=== PATIENT | male | born 1955 | race Caucasian/White ===

== ENCOUNTER 2021-08-23 11:11 | Inpatient (IN) | payer BC ==
[~2021-08-23] VITALS: Ht 193 cm; Wt 95.5 kg
[2021-08-23] MEDS ORDERED: piperacillin/tazo 3.375gm/50ml 50 ML IV ONE (11:30)
[2021-08-23] MEDS ORDERED: vancomycin/NS 1 GM ADD-VANTAGE 250 ML IV ONE (11:30)
[2021-08-23 11:55] LABS: BASOPHILS # (AUTO) 0.1 X10'3 (0-0.2); BASOPHILS % (AUTO) 0.7 % (0-1); EOSINOPHILS # (AUTO) 0.2 X10'3 (0-0.9); EOSINOPHILS % (AUTO) 2.1 % (0-6); HEMATOCRIT 41.8 % (42.0-52.0); HEMOGLOBIN 14.5 g/dl (14.0-17.9); LYMPHOCYTES # (AUTO) 2.3 X10'3 (1.1-4.8); LYMPHOCYTES % (AUTO) 24.5 % (21-51); MEAN CORPUSCULAR HEMOGLOBIN 32.2 PG (27.0-31.0); MEAN CORPUSCULAR HGB CONC 34.8 g/dL (33.0-36.5); MEAN CORPUSCULAR VOLUME 92.4 FL (78-98); MEAN PLATELET VOLUME 7.9 FL (7.4-10.4); MONOCYTES # (AUTO) 0.6 X10'3 (0-0.9); MONOCYTES % (AUTO) 6.5 % (2-12); NEUTROPHILS # (AUTO) 6.1 X10'3 (1.8-7.7); NEUTROPHILS % (AUTO) 66.2 % (42-75); PLATELET COUNT 339 X10'3 (140-440); RED BLOOD COUNT 4.52 X10'6 (4.70-6.10); RED CELL DISTRIBUTION WIDTH 15.4 % (11.5-14.5); WHITE BLOOD COUNT 9.3 X10'3 (4.5-11.0)
[2021-08-23 12:55] LABS: ALANINE AMINOTRANSFERASE 24 U/L (12-78); ALBUMIN 3.3 G/DL (3.4-5.0); ALBUMIN/GLOBULIN RATIO 0.7 (1.1-1.5); ALKALINE PHOSPHATASE 100 IU/L (46-116); ANION GAP 12 (8-16); ASPARTATE AMINO TRANSFERASE 9 U/L (10-37); BILIRUBIN,TOTAL 0.2 MG/DL (0.1-1.0); BLOOD UREA NITROGEN 13 MG/DL (7-18); CALCIUM 9.2 MG/DL (8.5-10.1); CHLORIDE 102 MMOL/L (99-107); GLUCOSE 419 MG/DL (70-104); POTASSIUM 4.4 MMOL/L (3.5-5.1); SODIUM 137 MMOL/L (135-145); TOTAL CARBON DIOXIDE 23.2 MMOL/L (24-32); TOTAL PROTEIN 7.8 G/DL (6.4-8.2); eGFR 75 ML/MIN
[2021-08-23 13:39] LABS: PLATELET ESTIMATE NORMAL; TOTAL CELLS COUNTED 100
[2021-08-23] MEDS ORDERED: ondansetron/PF 4mg/2ml inj IV ONE (14:10)
[2021-08-23] MEDS ORDERED: normal saline 1000ml 1,000 ML IV ONE (14:10)
[2021-08-23] MEDS ORDERED: morphine 4 MG/ML inj SYRINge IV ONE (14:10)
[2021-08-23] MEDS ORDERED: LIDOcaine/epinephrine/tetracaine TOPICAL sol 3 ML syringe TOP ONE (14:15)
[2021-08-23] MEDS ORDERED: mupirocin 2% ointment 22GM TP ONE (14:15)
[2021-08-23] MEDS ORDERED: TETanus/Pertussis (Acell)/Diphther VAC/PF (Tdap-Adult) 0.5ml syringe IMVAC ONE (14:15)
[2021-08-23] MEDS ORDERED: nicotine 21mg patch - 24 hr TD ONE (14:55)
[2021-08-23] MEDS ORDERED: LORazepam 2 mg/ml vial IV PRN (15:00)
[2021-08-23] MEDS ORDERED: magnesium 4gm in 100ml NS 100 ML IV PRN (15:00)
[2021-08-23] MEDS ORDERED: magnesium hydroxide 30ml (MOM) UD suspension PO PRN (15:00)
[2021-08-23] MEDS ORDERED: ondansetron/PF 4mg/2ml inj IV PRN (15:00)
[2021-08-23] MEDS ORDERED: potassium CL 10mEq/100ml bag 100 ML IV PRN (15:00)
[2021-08-23] MEDS ORDERED: HYDROcodone/acetaminophen 5mg/325mg tablet PO PRN (15:00)
[2021-08-23] MEDS ORDERED: mag hydrox/Alum hydrox/simeth 30ml oral suspension PO PRN (15:00)
[2021-08-23] MEDS ORDERED: morphine 2 MG/ML inj. syringe IV PRN ×2 (15:00)
[2021-08-23] MEDS ORDERED: LORazepam 1 MG tablet PO PRN (15:00)
[2021-08-23] MEDS ORDERED: acetaminophen 325mg tablet PO PRN ×2 (15:00)
[2021-08-23] MEDS ORDERED: magnesium Cl slow-release 64mg tablet PO PRN (15:00)
[2021-08-23] MEDS ORDERED: magnesium 2GM in 50ml NS 50 ML IV PRN (15:00)
[2021-08-23] MEDS ORDERED: potassium Cl 20 mEq SR tablet PO PRN ×2 (15:00)
[2021-08-23] MEDS ORDERED: HYDROcodone/acetaminophen 10/325mg tab PO PRN (15:00)
[2021-08-23] MEDS ORDERED: MESSAGE TO PHARMACY PO ONE (15:05)
[2021-08-23] MEDS ORDERED: dextrose 50%-water 50ml dispensing syringe IV PRN ×2 (15:05)
[2021-08-23] MEDS ORDERED: glucagon, human recombinant 1mg kit SUBCUT PRN (15:05)
[2021-08-23] MEDS ORDERED: dextrose ORAL solution 15 GM/59 ML bottle PO PRN ×2 (15:05)
[2021-08-23] MEDS ORDERED: NO HOME MEDS (15:07)
[2021-08-23] MEDS ORDERED: vancomycin/NS 1 GM ADD-VANTAGE 250 ML X 1 DOSE IV ONE (15:15)
[2021-08-23 15:34] LABS: HEMOGLOBIN A1C 9.5 % (4.5-6.2)
[2021-08-23] MEDS ORDERED: piperacillin/tazo 3.375gm/50ml 50 ML IV SCH (16:00)
[2021-08-23] MEDS: normal saline 1000ml 1,000 ML IV SCH (16:11)
[2021-08-23] MEDS: lisinopril 10 MG tablet PO SCH (19:00)
[2021-08-23] MEDS: piperacillin/tazo 3.375gm/50ml 50 ML IV SCH (19:00)
[2021-08-23] MEDS: heparin, porcine 5000 units/ml vial SQ SCH (19:08)
[2021-08-23] MEDS: insulin Lispro (HumaLOG) vial - multi-dose SQ SCH (19:29)
[2021-08-23] MEDS: K and/or MAG REPLACEMENT MC SCH (20:00)
[2021-08-23] MEDS: insulin glargine (Lantus) pen - multi-dose SQ SCH (20:24)
[2021-08-23 20:48] LABS: CLARITY,URINE CLEAR (Clear); COLOR,URINE YELLOW (Yellow); GLUCOSE, URINE >=1000 mg/dl (Neg); KETONES,URINE NEGATIVE (Neg); LEUKOCYTE ESTERASE ,URINE NEGATIVE (Neg); NITRITES, URINE NEGATIVE (Neg); OCCULT BLOOD,URINE NEGATIVE (Neg); PROTEIN,URINE NEGATIVE (Neg); UROBILINOGEN,URINE 0.2 E.U/dL (0.2-1.0)
[2021-08-23 20:58] LABS: UA COLLECTION TYPE CLN CATCH MIDSTREAM
[2021-08-23 21:01] LABS: WBC,URINE 0-4 /HPF (0-4)
[2021-08-23 21:02] LABS: BACTERIA,URINE NONE SEEN /HPF (Neg); MUCUS STRANDS FEW /LPF (Neg); RBC,URINE 0-2 /HPF (0-2); SQUAMOUS EPITHELIAL CELL,UR FEW /LPF (FEW); TRANSITIONAL EPI CELLS,URINE FEW /HPF
[2021-08-23 21:03] LABS: URINE AMPHETAMINE SCREEN NEGATIVE (Neg); URINE BARBITUATE SCREEN NEGATIVE (Neg); URINE BENZODIAZEPINES SCREEN NEGATIVE (Neg); URINE CANNABINOID SCREEN NEGATIVE (Neg); URINE COCAINE SCREEN NEGATIVE (Neg); URINE METHADONE SCREEN NEGATIVE (Neg); URINE OPIATE SCREEN POSITIVE (Neg); URINE PHENCYCLIDINE SCREEN NEGATIVE (Neg)
--- NOTE | 2021-08-23 21:30 | NUR ---
Received report from Sammie RIZO in the ER. Pt arrived on the unit via gurney and was able to ambulate with his cane and assistance to his bed. Pt belongings were placed in the closet except for his phone which the pt kept on his person. Pt was on room air, saline locked with no signs of distress. Will continue to monitor.
[2021-08-23 21:45] VITALS: BP 176/78
--- NOTE | 2021-08-23 22:15 | NUR ---
Advised pt that dressing would need to be removed to take pictures. Pt did not want dressing removed at this time as the ER had just placed it less than an hour prior and the dressing was extremely painful. Advised pt that it would need to be removed on dayshift and premedication should be done. Will notify dayshift of pictures needing to be completed.
[2021-08-23 23:51] VITALS: BP 133/60
[2021-08-24] MEDS: normal saline 1000ml 1,000 ML IV SCH ×3 (01:36→21:00)
[2021-08-24] MEDS: vancomycin/NS 1 GM ADD-VANTAGE 250 ML IV SCH ×2 (01:36→16:26)
[2021-08-24] MEDS: piperacillin/tazo 3.375gm/50ml 50 ML IV SCH ×3 (04:05→19:58)
[2021-08-24 06:14] LABS: BASOPHILS # (AUTO) 0.1 X10'3 (0-0.2); BASOPHILS % (AUTO) 0.8 % (0-1); EOSINOPHILS # (AUTO) 0.2 X10'3 (0-0.9); HEMATOCRIT 38.7 % (42.0-52.0); HEMOGLOBIN 13.2 g/dl (14.0-17.9); LYMPHOCYTES # (AUTO) 2.4 X10'3 (1.1-4.8); LYMPHOCYTES % (AUTO) 22.2 % (21-51); MEAN CORPUSCULAR HEMOGLOBIN 31.7 PG (27.0-31.0); MEAN CORPUSCULAR HGB CONC 34.2 g/dL (33.0-36.5); MEAN CORPUSCULAR VOLUME 92.8 FL (78-98); MEAN PLATELET VOLUME 8.1 FL (7.4-10.4); MONOCYTES # (AUTO) 0.6 X10'3 (0-0.9); MONOCYTES % (AUTO) 5.8 % (2-12); NEUTROPHILS # (AUTO) 7.3 X10'3 (1.8-7.7); NEUTROPHILS % (AUTO) 69.2 % (42-75); PLATELET COUNT 301 X10'3 (140-440); RED BLOOD COUNT 4.17 X10'6 (4.70-6.10); RED CELL DISTRIBUTION WIDTH 15.5 % (11.5-14.5); WHITE BLOOD COUNT 10.6 X10'3 (4.5-11.0)
--- NOTE | 2021-08-24 06:25 | NUR ---
Problems reprioritized. Patient report given, questions answered & plan of care reviewed with Caridad RIZO.
[2021-08-24 06:32] LABS: ALANINE AMINOTRANSFERASE 17 U/L (12-78); ALBUMIN 2.7 G/DL (3.4-5.0); ALBUMIN/GLOBULIN RATIO 0.7 (1.1-1.5); ALKALINE PHOSPHATASE 76 IU/L (46-116); ANION GAP 7 (8-16); ASPARTATE AMINO TRANSFERASE 13 U/L (10-37); BILIRUBIN,TOTAL 0.4 MG/DL (0.1-1.0); BLOOD UREA NITROGEN 12 MG/DL (7-18); CALCIUM 8.4 MG/DL (8.5-10.1); CHLORIDE 104 MMOL/L (99-107); CREATININE 0.92 MG/DL (0.60-1.10); GLUCOSE 140 MG/DL (70-104); POTASSIUM 4.2 MMOL/L (3.5-5.1); SODIUM 136 MMOL/L (135-145); TOTAL CARBON DIOXIDE 25.4 MMOL/L (24-32); TOTAL PROTEIN 6.4 G/DL (6.4-8.2); eGFR 82 ML/MIN
[2021-08-24 07:00] VITALS: BP 146/79
[2021-08-24] MEDS: nicotine 14mg patch - 24hr TD SCH (07:49)
[2021-08-24] MEDS: heparin, porcine 5000 units/ml vial SQ SCH ×2 (07:49→19:57)
[2021-08-24] MEDS: lisinopril 10 MG tablet PO SCH (07:49)
[2021-08-24] MEDS: atenolol 50mg tablet PO SCH (07:49)
[2021-08-24 07:52] LABS: PLATELET ESTIMATE NORMAL; TOTAL CELLS COUNTED 100
[2021-08-24 07:59] LABS: LARGE PLATELETS FEW
[2021-08-24] MEDS: K and/or MAG REPLACEMENT MC SCH ×2 (08:00→20:00)
[2021-08-24] MEDS ORDERED: pneumococcal 23-VAL P-sac vacc 25 mcg/0.5ml vial IMVAC ONE (10:00)
[2021-08-24] MEDS ORDERED: FLU VACC QS2021-22(6MOS UP)/PF 60 MCG/0.5 ML SYRINGE IM ONE (10:00)
[2021-08-24 11:30] VITALS: BP 139/80
--- NOTE | 2021-08-24 13:04 | NUR ---
Met with patient in regards to alcohol use and to see if patient wanted any resources for treatment options. Patient has tried going to AA and feels like he needs something more then that. Patient would like to get established with a counselor first that takes his insurance. I let patients psychosocial rehabilitation counselor know that patient would like a list of providers. I will check back in with patient before he is discharged.
--- NOTE | 2021-08-24 13:09 | NUR ---
WOUND INFECTION EDUCATION PROVIDED BY WOUND CARE 1. Patient instructed to call their primary doctor, or go the ED immediately if any of the following symptoms occur: * Increased pain in wound * Increase in drainage from the wound * Redness in the skin surrounding the wound * Warmth in the skin surrounding the wound * Bleeding from the wound * Temperature of 101 or greater 2. If any of these occur while in the hospital tell a nurse immediately. Addendum: 08/24/21 at 1309 by Bhupendra Narayanan RN Amended: Links added.
[2021-08-24] MEDS: insulin Lispro (HumaLOG) vial - multi-dose SQ SCH ×2 (13:30→19:14)
--- NOTE | 2021-08-24 14:52 | NUR ---
DM consult: Pt with A1c 9.5% with T2DM in [facility], however per physician notes pt denies h/o DM. Likely new diagnosis this admit. Unable to provide DM education until physician has informed pt of DM dx, d/w RN who is unsure if physician has informed pt of DM at this time. DM education deferred pending confirmation that pt has received official dx by physician. Pt admit for left heel abscess/cellulitis which occurred after stepping on a toothpick. Per [facility] note, wound documented as an abscess with sloughing hematoma. Pt currently on a CHO controlled diet documented with 100% PO intake throughout [facility]. D/w dietary to send double protein TIDWM. LBM 08/23. Will continue to follow. Recommendations: 1) Continue CHO controlled diet 2) Double eggs WB, double meat BIDLD 3) Bowel care PRN 4) Weekly scaled weights 5) DM education once confirmed pt has received DM dx by physician, A1c 9.5% Addendum: 08/24/21 at [address] Amended: Links added.
--- NOTE | 2021-08-24 15:17 | NUR ---
picked up for MRI
[2021-08-24 18:00] VITALS: BP 151/77
[2021-08-24] MEDS ORDERED: GADOTERATE MEGLUMINE 7.5 MMOL/15 ML VIAL IV ONE (18:00)
--- NOTE | 2021-08-24 18:16 | NUR ---
Problems reprioritized. Patient report given, questions answered & plan of care reviewed with SALLIE Mosqueda.
[2021-08-24] MEDS: lactobacillus rhamnosus 10,000 MMU CELLS/CAPSULE PO SCH (19:56)
[2021-08-24] MEDS: insulin glargine (Lantus) pen - multi-dose SQ SCH (21:23)
[2021-08-25] VITALS: BP 146/72
--- NOTE | 2021-08-25 00:45 | NUR ---
Patient was returned to the unit by security after he left the unit to go outside to smoke . Patient educated on our non- smoking policy and the risk to his health from smoking .
[2021-08-25] MEDS ORDERED: VANCOMYCIN LEVEL IV ONE (01:30)
[2021-08-25 01:37] LABS: BASOPHILS % (AUTO) 0.2 % (0-1); EOSINOPHILS # (AUTO) 0.2 X10'3 (0-0.9); EOSINOPHILS % (AUTO) 2.3 % (0-6); HEMATOCRIT 37.5 % (42.0-52.0); HEMOGLOBIN 13.1 g/dl (14.0-17.9); LYMPHOCYTES # (AUTO) 2.8 X10'3 (1.1-4.8); LYMPHOCYTES % (AUTO) 26.8 % (21-51); MEAN CORPUSCULAR HGB CONC 34.9 g/dL (33.0-36.5); MEAN CORPUSCULAR VOLUME 91.8 FL (78-98); MEAN PLATELET VOLUME 7.9 FL (7.4-10.4); MONOCYTES # (AUTO) 0.6 X10'3 (0-0.9); MONOCYTES % (AUTO) 5.6 % (2-12); NEUTROPHILS # (AUTO) 6.8 X10'3 (1.8-7.7); NEUTROPHILS % (AUTO) 65.1 % (42-75); PLATELET COUNT 260 X10'3 (140-440); RED BLOOD COUNT 4.08 X10'6 (4.70-6.10); RED CELL DISTRIBUTION WIDTH 15.2 % (11.5-14.5); WHITE BLOOD COUNT 10.4 X10'3 (4.5-11.0)
[2021-08-25 01:53] LABS: ALANINE AMINOTRANSFERASE 15 U/L (12-78); ALBUMIN 2.6 G/DL (3.4-5.0); ALBUMIN/GLOBULIN RATIO 0.8 (1.1-1.5); ALKALINE PHOSPHATASE 73 IU/L (46-116); ANION GAP 10 (8-16); ASPARTATE AMINO TRANSFERASE 10 U/L (10-37); BILIRUBIN,TOTAL 0.3 MG/DL (0.1-1.0); BLOOD UREA NITROGEN 16 MG/DL (7-18); BUN/CREATININE RATIO 15.2 (5.4-32.0); CALCIUM 8.2 MG/DL (8.5-10.1); CHLORIDE 106 MMOL/L (99-107); CREATININE 1.05 MG/DL (0.60-1.10); GLUCOSE 185 MG/DL (70-104); POTASSIUM 4.2 MMOL/L (3.5-5.1); SODIUM 141 MMOL/L (135-145); TOTAL CARBON DIOXIDE 25.2 MMOL/L (24-32); eGFR 70 ML/MIN
[2021-08-25] MEDS: vancomycin/NS 1 GM ADD-VANTAGE 250 ML IV SCH (02:03)
[2021-08-25 03:07] LABS: VANCOMYCIN,TROUGH 14.7 UG/ML (6.0-14.0)
[2021-08-25] MEDS: piperacillin/tazo 3.375gm/50ml 50 ML IV SCH ×2 (03:14→10:50)
--- NOTE | 2021-08-25 06:11 | NUR ---
Patient report given, questions answered and plan of care reviewed with Caridad RIZO.
[2021-08-25 07:00] VITALS: BP 172/85
[2021-08-25] MEDS: normal saline 1000ml 1,000 ML IV SCH ×2 (07:00→10:50)
[2021-08-25] MEDS: atenolol 50mg tablet PO SCH (07:10)
[2021-08-25] MEDS: lactobacillus rhamnosus 10,000 MMU CELLS/CAPSULE PO SCH (07:10)
[2021-08-25] MEDS: lisinopril 10 MG tablet PO SCH (07:10)
[2021-08-25] MEDS: nicotine 14mg patch - 24hr TD SCH (07:11)
[2021-08-25] MEDS: heparin, porcine 5000 units/ml vial SQ SCH (07:11)
[2021-08-25] MEDS: K and/or MAG REPLACEMENT MC SCH (07:15)
[2021-08-25] MEDS: insulin Lispro (HumaLOG) vial - multi-dose SQ SCH (08:55)
--- NOTE | 2021-08-25 09:38 | NUR ---
Page sent to Physically Impaired Teacher.... [address] Alexander Sheikh: did talk to patient regarding new DM findings. he is okay for education. thank you!
[2021-08-25] MEDS ORDERED: METF-1203 PO (11:26)
[2021-08-25] MEDS ORDERED: ATEN50TA41 PO (11:26)
[2021-08-25] MEDS ORDERED: LISI10TA27 PO (11:26)
[2021-08-25] MEDS ORDERED: DOXY-243 PO (11:26)
[2021-08-25] MEDS ORDERED: NICO-631 TD (11:26)
--- NOTE | 2021-08-25 12:00 | NUR ---
daily dressing change completed with patients assistance.
--- NOTE | 2021-08-25 12:09 | NUR ---
Page sent to ... [address] Alexander Sheikh: requesting to speak with you prior to DC. thanks!
--- NOTE | 2021-08-25 12:38 | NUR ---
not done. patient discharged Addendum: 08/25/21 at 1238 by Caridad Carballo RN Amended: Links added.
[2021-08-25 12:41] VITALS: BP 154/80
--- NOTE | 2021-08-25 14:12 | NUR ---
Patient stable and appropriate for discharge home. IV removed, all belongings taken from room. New prescriptions called into [facility] in [place]. All wound care completed with patient and he returned the demonstration, all questions answered. Extra wound care supplies were given to the patient so he could complete the daily dressing at home per Dr. Benavidez's request. Diabetes survival skills as well as diet information and information on metformin was given to the patient. All discharge instructions and education given and reviewed with patient, all questions answered. Verbal understanding of all.
== END 2021-08-25 14:00 | disposition home or self-care (01) | DRG 603 ==
LOC: ER 11:12 → ED HOLD 15:03 → SUR 3N 21:30
PROVIDERS: ADMIT Internal Medicine; ATTEND Internal Medicine
DX: L03.116 Cellulitis of left lower limb (principal); L02.612 Cutaneous abscess of left foot; F17.210 Nicotine dependence, cigarettes, uncomplicated; E11.65 Type 2 diabetes mellitus with hyperglycemia; I10 Essential (primary) hypertension; Z66 Do not resuscitate
CPT/HCPCS: 36415; 71045; 73720; 80053; 80202; 80305; 81001; 82948; 83036; 83605; 84145; 85007; 85025; 87040; 87081; 90471; 90715; 90732; 93005; 93926; 96365; 96368; 96375; 97110; 97161; 97530; 99285; A9575; G0378; J1644; J1815; J2270; J2405; J2543; J3370; J7030

== ENCOUNTER 2022-08-02 17:18 | Emergency (ER) | payer BC ==
[~2022-08-02] VITALS: Ht 193 cm; Wt 102.3 kg
[~2022-08-02 17:18] MED LIST: FOLI1TAB27 PO; LISI2.5T14 PO; MULT-620 PO; NICO-687 TD; SERT-432 PO; thiamine tablet PO
[2022-08-02 17:52] VITALS: BP 131/82
== END 2022-08-02 21:55 | disposition left against medical advice (07) ==
LOC: ER 17:19
DX: M79.601 Pain in right arm (principal); Z53.21 Procedure and treatment not carried out due to patient leaving prior to being seen by health care provider
CPT/HCPCS: 73060

== ENCOUNTER 2022-08-07 15:36 | Emergency (ER) | payer BC ==
[~2022-08-07] VITALS: Ht 193 cm; Wt 98.0 kg
[2022-08-07] MEDS ORDERED: acetaminophen 325mg tablet PO ONE (17:50)
[2022-08-07 20:15] VITALS: BP 152/76
== END 2022-08-07 20:17 | disposition home or self-care (01) ==
LOC: ER 15:37
DX: S42.291A Other displaced fracture of upper end of right humerus, initial encounter for closed fracture (principal); M25.511 Pain in right shoulder; E11.9 Type 2 diabetes mellitus without complications; W19.XXXA Unspecified fall, initial encounter; Y93.89 Activity, other specified; Y92.89 Other specified places as the place of occurrence of the external cause; Y99.8 Other external cause status
CPT/HCPCS: 73030; 73200; 99284; A4565

== ENCOUNTER 2022-08-16 19:55 | Emergency (ER) | payer BC | END 2022-08-16 21:59 | disposition left against medical advice (07) | LOC: ER 19:56 | DX: M79.603 Pain in arm, unspecified (principal); Z53.21 Procedure and treatment not carried out due to patient leaving prior to being seen by health care provider ==

== ENCOUNTER 2022-08-17 03:57 | Emergency (ER) | payer BC ==
[~2022-08-17] VITALS: Ht 193 cm; Wt 98.0 kg
[2022-08-17 04:17] VITALS: BP 159/82
== END 2022-08-17 06:35 | disposition home or self-care (01) ==
LOC: ER 03:57
DX: S42.201A Unspecified fracture of upper end of right humerus, initial encounter for closed fracture (principal); E11.9 Type 2 diabetes mellitus without complications; W19.XXXA Unspecified fall, initial encounter; Y93.89 Activity, other specified; Y92.89 Other specified places as the place of occurrence of the external cause; Y99.8 Other external cause status
CPT/HCPCS: 29105; 73060; 99283

== ENCOUNTER 2023-11-30 12:55 | Inpatient (IN) | payer BC, MEDICARE ==
[~2023-11-30] VITALS: Ht 193 cm; Wt 75.0 kg
[~2023-11-30 12:55] MED LIST changes: +BISA-78 PO; +FERR324T4 PO; +LANTUS SQ; -LISI2.5T14 PO; +LISI5TAB22 PO
[2023-11-30 14:09] LABS: BASOPHILS % (AUTO) 0.4 % (0-1); EOSINOPHILS % (AUTO) 0 % (0-6); HEMATOCRIT 36.1 % (42.0-52.0); HEMOGLOBIN 12.4 g/dl (14.0-17.9); LYMPHOCYTES # (AUTO) 1.2 X10'3 (1.1-4.8); MEAN CORPUSCULAR HEMOGLOBIN 34.3 PG (27.0-31.0); MEAN CORPUSCULAR HGB CONC 34.2 g/dL (33.0-36.5); MEAN CORPUSCULAR VOLUME 100.1 FL (78-98); MEAN PLATELET VOLUME 7.4 FL (7.4-10.4); MONOCYTES # (AUTO) 1.3 X10'3 (0-0.9); MONOCYTES % (AUTO) 12.8 % (2-12); NEUTROPHILS # (AUTO) 7.7 X10'3 (1.8-7.7); NEUTROPHILS % (AUTO) 74.8 % (42-75); PLATELET COUNT 162 X10'3 (140-440); RED BLOOD COUNT 3.61 X10'6 (4.70-6.10); RED CELL DISTRIBUTION WIDTH 14.2 % (11.5-14.5); WHITE BLOOD COUNT 10.2 X10'3 (4.5-11.0)
[2023-11-30 14:23] LABS: ALANINE AMINOTRANSFERASE 38 U/L (12-78); ALBUMIN 2.4 G/DL (3.4-5.0); ALBUMIN/GLOBULIN RATIO 0.6 (1.1-1.5); ALKALINE PHOSPHATASE 130 IU/L (46-116); ANION GAP 28 (8-16); ASPARTATE AMINO TRANSFERASE 58 U/L (10-37); BILIRUBIN,TOTAL 0.4 MG/DL (0.1-1.0); BLOOD UREA NITROGEN 24 MG/DL (7-18); BUN/CREATININE RATIO 25.3 (10.0-20.0); CALCIUM 8.1 MG/DL (8.5-10.1); CHLORIDE 90 MMOL/L (99-107); CREATININE 0.95 MG/DL (0.60-1.10); GLUCOSE 314 MG/DL (70-104); POTASSIUM 3.8 MMOL/L (3.5-5.1); SODIUM 134 MMOL/L (135-145); TOTAL CARBON DIOXIDE 15.6 MMOL/L (24-32); TOTAL PROTEIN 6.7 G/DL (6.4-8.2); eCRCL 78 ML/MIN; eGFR 79 ML/MIN
[2023-11-30 14:43] LABS: NUCLEATED RED BLOOD CELLS 1 /100WBC (0-0); PLATELET ESTIMATE NORMAL; ROULEAUX 1+; TOTAL CELLS COUNTED 100
[2023-11-30 15:10] LABS: BILIRUBIN,URINE NEGATIVE (Neg); COLOR,URINE STRAW (Yellow); GLUCOSE, URINE 500 mg/dl (Neg); KETONES,URINE >=80 mg/dl (Neg); LEUKOCYTE ESTERASE ,URINE NEGATIVE (Neg); NITRITES, URINE POSITIVE (Neg); OCCULT BLOOD,URINE LARGE (Neg); PH,URINE 5.5 (4.8-8.0); PROTEIN,URINE 30 mg/dl (Neg); UROBILINOGEN,URINE 0.2 E.U/dL (0.2-1.0)
[2023-11-30 15:16] LABS: UA COLLECTION TYPE FOLEY CATH
[2023-11-30 15:17] LABS: CLARITY,URINE SLIGHTLY CLOUDY (Clear)
[2023-11-30 15:19] LABS: BACTERIA,URINE 1+ /HPF (Neg); HYALINE CASTS 0-3 /LPF (NEGATIVE); MUCUS STRANDS NONE SEEN /LPF (Neg); RBC,URINE 20-50 /HPF (0-2); RENAL CELLS, URINE FEW /HPF; SQUAMOUS EPITHELIAL CELL,UR NONE SEEN /LPF (FEW)
[2023-11-30 15:51] LABS: BASOPHILS % (AUTO) 0.3 % (0-1); EOSINOPHILS % (AUTO) 0 % (0-6); HEMATOCRIT 39.9 % (42.0-52.0); HEMOGLOBIN 13.6 g/dl (14.0-17.9); LYMPHOCYTES # (AUTO) 1.1 X10'3 (1.1-4.8); MEAN CORPUSCULAR HEMOGLOBIN 33.8 PG (27.0-31.0); MEAN CORPUSCULAR HGB CONC 34.1 g/dL (33.0-36.5); MEAN CORPUSCULAR VOLUME 99.3 FL (78-98); MEAN PLATELET VOLUME 6.9 FL (7.4-10.4); MONOCYTES # (AUTO) 0.6 X10'3 (0-0.9); MONOCYTES % (AUTO) 8.4 % (2-12); NEUTROPHILS # (AUTO) 5.7 X10'3 (1.8-7.7); NEUTROPHILS % (AUTO) 76.3 % (42-75); PLATELET COUNT 173 X10'3 (140-440); RED BLOOD COUNT 4.02 X10'6 (4.70-6.10); RED CELL DISTRIBUTION WIDTH 14.3 % (11.5-14.5); WHITE BLOOD COUNT 7.4 X10'3 (4.5-11.0)
[2023-11-30 15:57] LABS: ACETONE MODERATE (NEGATIVE)
[2023-11-30 15:59] LABS: ALBUMIN 2.6 G/DL (3.4-5.0); ANION GAP 23 (8-16); BLOOD UREA NITROGEN 23 MG/DL (7-18); BUN/CREATININE RATIO 23.2 (10.0-20.0); CHLORIDE 89 MMOL/L (99-107); CREATININE 0.99 MG/DL (0.60-1.10); ETHANOL 127 MG/DL (<10); GLUCOSE 314 MG/DL (70-104); POTASSIUM 4.1 MMOL/L (3.5-5.1); PROTHROMBIN TIME 9.8 SECONDS (9.0-12.0); SODIUM 128 MMOL/L (135-145); TOTAL CARBON DIOXIDE 16.4 MMOL/L (24-32); eCRCL 75 ML/MIN; eGFR 75 ML/MIN
[2023-11-30 16:07] LABS: LACTIC SEPSIS 2.1 MMOL/L (0.4-2.0)
[2023-11-30 16:09] LABS: INR 0.9 INR
[2023-11-30] MEDS: normal saline 1000ML IV soln IVB ONE ×2 (16:27)
[2023-11-30] MEDS ORDERED: magnesium Cl slow-release 64mg tablet PO PRN (16:45)
[2023-11-30] MEDS ORDERED: acetaminophen 325mg tablet PO PRN ×2 (16:45)
[2023-11-30] MEDS ORDERED: dextrose 50%-water 50ml dispensing syringe IV PRN ×3 (16:45→16:55)
[2023-11-30] MEDS ORDERED: potassium Cl 20 mEq SR tablet PO PRN (16:45)
[2023-11-30] MEDS ORDERED: haloperidol 5mg tablet PO PRN (16:45)
[2023-11-30] MEDS ORDERED: haloperidol lactate 5mg/ml inj IM PRN (16:45)
[2023-11-30] MEDS ORDERED: magnesium 2GM in 50ml NS 50 ML IV PRN (16:45)
[2023-11-30] MEDS ORDERED: magnesium 4gm in 100ml NS 100 ML IV PRN (16:45)
[2023-11-30] MEDS ORDERED: potassium Cl 40MEQ/1/2NS 520ml 520 ML IV PRN (16:45)
[2023-11-30] MEDS ORDERED: HYDROcodone/acetaminophen 10/325mg tab PO PRN (16:45)
[2023-11-30] MEDS ORDERED: LORazepam 2 mg/ml vial IV PRN (16:45)
[2023-11-30] MEDS ORDERED: ondansetron/PF 4mg/2ml inj IV PRN (16:45)
[2023-11-30] MEDS ORDERED: morphine 2 MG/ML inj. syringe IV PRN ×2 (16:45)
[2023-11-30] MEDS ORDERED: HYDROcodone/acetaminophen 5mg/325mg tablet PO PRN (16:45)
[2023-11-30] MEDS ORDERED: glucagon, human recombinant 1mg kit SUBCUT PRN (16:55)
[2023-11-30] MEDS ORDERED: DEXTROSE 15 GM of carb/4 tabs (each vial/BOTTLE has 4 tablets) PO PRN ×2 (16:55)
[2023-11-30] MEDS: CefTRIAXone/D5W-Rocephin 1gm 50 ML IV ONE (17:00)
[2023-11-30] MEDS: potassium Cl 20mEq in NS 1,000 ML IV SCH (17:41)
[2023-11-30] MEDS: MESSAGE TO PHARMACY PO ONE (17:41)
[2023-11-30] MEDS: nicotine 14mg patch - 24hr TD SCH (17:46)
[2023-11-30 18:25] LABS: URINE AMPHETAMINE SCREEN NEGATIVE (Neg); URINE BARBITUATE SCREEN NEGATIVE (Neg); URINE BENZODIAZEPINES SCREEN NEGATIVE (Neg); URINE CANNABINOID SCREEN NEGATIVE (Neg); URINE COCAINE SCREEN NEGATIVE (Neg); URINE METHADONE SCREEN NEGATIVE (Neg); URINE OPIATE SCREEN NEGATIVE (Neg); URINE PHENCYCLIDINE SCREEN NEGATIVE (Neg)
[2023-11-30] MEDS: thiamine 100mg/ml 2ml inj. IV SCH (21:38)
[2023-11-30] MEDS: insulin glargine (Lantus) pen - multi-dose SQ SCH (21:50)
[2023-11-30] MEDS: insulin Lispro (HumaLOG) vial - multi-dose SQ SCH (21:51)
[2023-12-01] VITALS (8 sets, daily range): BP systolic 129–147; BP diastolic 63–75; PULSE 90–125; RESP 16–20; TEMP 97.1–99; O2SAT 94–98
[2023-12-01] MEDS: cefepime 1GM/NS ADD-VANTAGE 100 ML IV SCH (00:14)
[2023-12-01] MEDS: acetaminophen w/codeine (30MG) #3 tablet PO ONE (00:36)
[2023-12-01] MEDS: LORazepam 1 MG tablet PO PRN (05:18)
[2023-12-01 08:04] LABS: BASOPHILS # (AUTO) 0.1 X10'3 (0-0.2); EOSINOPHILS % (AUTO) 0 % (0-6); HEMATOCRIT 34.2 % (42.0-52.0); HEMOGLOBIN 11.8 g/dl (14.0-17.9); LYMPHOCYTES # (AUTO) 0.4 X10'3 (1.1-4.8); LYMPHOCYTES % (AUTO) 4.7 % (21-51); MEAN CORPUSCULAR HEMOGLOBIN 33.7 PG (27.0-31.0); MEAN CORPUSCULAR HGB CONC 34.6 g/dL (33.0-36.5); MEAN CORPUSCULAR VOLUME 97.5 FL (78-98); MEAN PLATELET VOLUME 6.9 FL (7.4-10.4); MONOCYTES # (AUTO) 0.2 X10'3 (0-0.9); MONOCYTES % (AUTO) 2.5 % (2-12); NEUTROPHILS % (AUTO) 91.8 % (42-75); PLATELET COUNT 123 X10'3 (140-440); RED BLOOD COUNT 3.51 X10'6 (4.70-6.10); RED CELL DISTRIBUTION WIDTH 14.2 % (11.5-14.5); WHITE BLOOD COUNT 8.8 X10'3 (4.5-11.0)
[2023-12-01 08:34] LABS: ALANINE AMINOTRANSFERASE 52 U/L (12-78); ALBUMIN/GLOBULIN RATIO 0.5 (1.1-1.5); ALKALINE PHOSPHATASE 194 IU/L (46-116); ANION GAP 11 (8-16); ASPARTATE AMINO TRANSFERASE 133 U/L (10-37); BILIRUBIN,TOTAL 0.5 MG/DL (0.1-1.0); BLOOD UREA NITROGEN 17 MG/DL (7-18); BUN/CREATININE RATIO 21.5 (10.0-20.0); CALCIUM 7.6 MG/DL (8.5-10.1); CHLORIDE 103 MMOL/L (99-107); CREATININE 0.79 MG/DL (0.60-1.10); GLUCOSE 145 MG/DL (70-104); POTASSIUM 3.3 MMOL/L (3.5-5.1); SODIUM 140 MMOL/L (135-145); TOTAL CARBON DIOXIDE 26.5 MMOL/L (24-32); TOTAL PROTEIN 5.8 G/DL (6.4-8.2); eCRCL 94 ML/MIN; eGFR > 90 ML/MIN
[2023-12-01] MEDS: enoxaparin 40mg/0.4ml syringe SUBCUT SCH (09:02)
[2023-12-01] MEDS: folic acid 1mg/0.2ml inj IV SCH (09:04)
[2023-12-01] MEDS: potassium Cl 20 mEq SR tablet PO PRN (19:23)
[2023-12-02] VITALS (9 sets, daily range): BP systolic 56–150; BP diastolic 26–81; PULSE 99–177; RESP 18–23; TEMP 98.9; O2SAT 76–98
[2023-12-02 07:10] LABS: ALANINE AMINOTRANSFERASE 54 U/L (12-78); ALBUMIN/GLOBULIN RATIO 0.5 (1.1-1.5); ALKALINE PHOSPHATASE 143 IU/L (46-116); ANION GAP 18 (8-16); ASPARTATE AMINO TRANSFERASE 101 U/L (10-37); BILIRUBIN,TOTAL 0.5 MG/DL (0.1-1.0); BLOOD UREA NITROGEN 18 MG/DL (7-18); BUN/CREATININE RATIO 32.7 (10.0-20.0); CALCIUM 8.5 MG/DL (8.5-10.1); CHLORIDE 106 MMOL/L (99-107); CREATININE 0.55 MG/DL (0.60-1.10); GLUCOSE 169 MG/DL (70-104); POTASSIUM 3.7 MMOL/L (3.5-5.1); SODIUM 143 MMOL/L (135-145); TOTAL CARBON DIOXIDE 19.2 MMOL/L (24-32); TOTAL PROTEIN 5.9 G/DL (6.4-8.2); eCRCL 134 ML/MIN; eGFR > 90 ML/MIN
[2023-12-02 07:16] LABS: BASOPHILS % (AUTO) 0.3 % (0-1); EOSINOPHILS % (AUTO) 0.1 % (0-6); HEMATOCRIT 34.4 % (42.0-52.0); HEMOGLOBIN 11.7 g/dl (14.0-17.9); LYMPHOCYTES # (AUTO) 0.9 X10'3 (1.1-4.8); LYMPHOCYTES % (AUTO) 12.5 % (21-51); MEAN CORPUSCULAR HEMOGLOBIN 33.6 PG (27.0-31.0); MEAN CORPUSCULAR HGB CONC 33.9 g/dL (33.0-36.5); MEAN CORPUSCULAR VOLUME 99.2 FL (78-98); MEAN PLATELET VOLUME 7.6 FL (7.4-10.4); MONOCYTES # (AUTO) 0.8 X10'3 (0-0.9); MONOCYTES % (AUTO) 11.1 % (2-12); NEUTROPHILS # (AUTO) 5.5 X10'3 (1.8-7.7); PLATELET COUNT 119 X10'3 (140-440); RED BLOOD COUNT 3.47 X10'6 (4.70-6.10); RED CELL DISTRIBUTION WIDTH 14.6 % (11.5-14.5); WHITE BLOOD COUNT 7.3 X10'3 (4.5-11.0)
[2023-12-02 08:29] LABS: PLATELET ESTIMATE DECREASED; TOTAL CELLS COUNTED 100
[2023-12-02] MEDS ORDERED: fentaNYL/PF 50MCG/1 ML 2ML syringe ONE (10:08)
[2023-12-02] MEDS ORDERED: midazolam 1 mg/ML 2ml injection ONE (10:08)
[2023-12-02] MEDS ORDERED: LIDOcaine 1% 30ml preserv. free vial ONE (10:08)
[2023-12-02] MEDS ORDERED: heparin 1,000unit/ml 10ml vial 0 ML ONE (10:09)
[2023-12-02] MEDS ORDERED: iohexol 350 MG/ML 50ML vial IV ONE (10:09)
[2023-12-02] MEDS ORDERED: iohexol 350MG/ML 100ml bottle IV ONE (10:09)
[2023-12-02] MEDS ORDERED: NPH,100V2 SQ ×2 (11:07)
[2023-12-02] MEDS ORDERED: NALT50TA PO (11:07)
[2023-12-02] MEDS ORDERED: FERR325T29 PO (11:07)
[2023-12-02] MEDS ORDERED: LISI5TAB22 PO (11:09)
[2023-12-02] MEDS ORDERED: INSU100V55 SQ (11:09)
[2023-12-02 11:28] LABS: ABG BASE EXCESS -9.2 mmol/L (-2.0-2.0); ABG HCO3 20.8 mmol/L (22.0-26.0); ABG OXYGEN SATURATION 90.7 % (94-97); ABG PCO2 (T) 69.4 mmHg (35.0-48.0); ABG PH (T) 7.102 (7.340-7.440); ABG PO2 (T) 84.4 mmHg (75.0-100.0); FCOHb 0.2 % (0.0-3.9); FHHb 9.3 % (0.0-5.0); FMetHb 0.3 % (0.0-1.5); FO2Hb 90.2 % (94-97); MODE VENT - P/C; PATIENT TEMPERATURE 38.3; PEEP 5 cm H2O; TIDAL VOLUME 364 mL; TOTAL HEMOGLOBIN 12.6 G/dl (14.0-17.9)
[2023-12-02] MEDS: NORepinephrine 8mg/ 250ml NS 250 ML IV ONE (11:40)
[2023-12-02] MEDS ORDERED: propofol 1000mg/100ml bottle 100 ML IV ONE (12:12)
[2023-12-02] MEDS: propofol 1000mg/100ml bottle 100 ML IV SCH (12:15)
[2023-12-02 12:31] LABS: TRIGLYCERIDES 64 MG/DL (20-135)
[2023-12-02] MEDS: morphine 10mg/ml inj. IV PRN (13:17)
[2023-12-02] MEDS: LORazepam 2 mg/ml vial IV PRN (13:18)
[2023-12-04] MEDS ORDERED: thiamine 100mg tablet PO SCH (08:00)
[2023-12-05] MEDS ORDERED: folic acid 1mg tablet PO SCH (08:00)
== END 2023-12-02 15:38 | DRG 637 ==
LOC: ER 12:55 → ED HOLD 16:54 → EDBEDREQ 12-01 00:22 → ORTHO 4S 12-01 01:10 → CICU 2S 12-02 10:48
PROVIDERS: ADMIT Internal Medicine; ATTEND Internal Medicine
PROC: 5A12012 Performance of Cardiac Output, Single, Manual (ICD-10-PCS; principal; 2023-12-02)
PROC: 5A2204Z Restoration of Cardiac Rhythm, Single (ICD-10-PCS; 2023-12-02)
PROC: 0BH17EZ Insertion of Endotracheal Airway into Trachea, Via Natural or Artificial Opening (ICD-10-PCS; 2023-12-02)
PROC: 5A1935Z Respiratory Ventilation, Less than 24 Consecutive Hours (ICD-10-PCS; 2023-12-02)
DX: E11.10 Type 2 diabetes mellitus with ketoacidosis without coma (principal); I21.3 ST elevation (STEMI) myocardial infarction of unspecified site; J96.91 Respiratory failure, unspecified with hypoxia; N39.0 Urinary tract infection, site not specified; F10.139 Alcohol abuse with withdrawal, unspecified; E87.1 Hypo-osmolality and hyponatremia; I47.10 Supraventricular tachycardia, unspecified; R64 Cachexia; M96.A3 Multiple fractures of ribs associated with chest compression and cardiopulmonary resuscitation; Z66 Do not resuscitate; I46.9 Cardiac arrest, cause unspecified; F10.129 Alcohol abuse with intoxication, unspecified; F17.210 Nicotine dependence, cigarettes, uncomplicated; R62.7 Adult failure to thrive; Y90.6 Blood alcohol level of 120-199 mg/100 ml; Z51.5 Encounter for palliative care; Z68.20 Body mass index [BMI] 20.0-20.9, adult; Z79.899 Other long term (current) drug therapy; Z91.199 Patient's noncompliance with other medical treatment and regimen due to unspecified reason
CPT/HCPCS: 36415; 36600; 70450; 71045; 80048; 80053; 80305; 80320; 81001; 82009; 82140; 82803; 82948; 83036; 83605; 84145; 84478; 85007; 85018; 85025; 85610; 85651; 87040; 87077; 87081; 87088; 87186; 92950; 93005; 93970; 94760; 94799; 99291; A4314; A6212; A6213; A6223; A6250; A6449; G0378; J0692; J0696; J1644; J1650; J1815; J2060; J2250; J2274; J2704; J3010; J3411; J3480; J3490; J7030; J7040; Q9967